=== PATIENT | male | born 1965 | race Caucasian/White ===

== ENCOUNTER 2016-08-07 10:32 | Day surgery (SDC) | payer OTHER ==
[~2016-08-07] VITALS: Ht 180.3 cm; Wt 95.0 kg
[~2016-08-07 10:32] MED LIST: ATRV10T PO; CHOL10008 PO; ESCI20TA38 PO; ESZO3TAB38 PO; GABA-502 PO; IBUP-1827 PO; LEVO88TA4 PO; METH750T3 PO; OMEG-38 PO; PRAZ1CAP2 PO; PROP1DRO5 OCULAR; RANI150C4 PO; Sodium Chloride LOK Flush 10 mL Syringe IV PRN; TRAM50TA2 PO; VENL37.57 PO; fentaNYL-PF 50 mCg/mL 2 mL Inj IVPUSH PRN
[2016-08-07 11:49] VITALS: BP 121/79; PULSE 54; RESP 14; O2SAT 99
[2016-08-07] MEDS: 0.9% Sodium Chloride 1,000 ML IV SCH ×2 (12:36→13:58)
[2016-08-07 13:47] VITALS: BP 129/73; PULSE 66; RESP 16; O2SAT 99
[2016-08-07 13:57] VITALS: BP 121/80; PULSE 62; RESP 16; O2SAT 96
[2016-08-07 14:07] VITALS: BP 121/81; PULSE 63; RESP 16; O2SAT 98
--- NOTE | 2016-08-07 14:28 | ENDO ---
[address] [address] ENDOSCOPY PROCEDURE PATIENT: SAUD RICHMOND : 1965 MR#: [id number] ADMIT: 08/07/2016 JOB ID: [id number] DATE: 08/07/2016 PROCEDURE: Esophagogastroduodenoscopy. INDICATION: Epigastric pain. The patient's ASA classification is 1. Mallampati score is 2. MEDICATIONS: 1. Versed 8 mg. 2. Fentanyl 175 mcg. INSTRUMENT USED: GIF H 180 J. PROCEDURE DETAILS: After informed consent was obtained, the patient was brought into the GI suite, where he was placed on oxygen via nasal cannula and monitored with continuous pulse oximeter, telemetry and blood pressure monitoring. A time-out was performed. Then, he was placed in the left lateral decubitus position and medications were administered for sedation. A bite block was placed. The standard EGD scope was inserted through the bite block and advanced under direct visualization to the second portion of the duodenum without difficulty. FINDINGS: 1. Normal appearing duodenal bulb, first and second portion. Multiple random biopsies were obtained. 2. Normal-appearing pylorus, antrum and gastric body. 3. Retroflexed views in the gastric body revealed a normal-appearing cardia and fundus. 4. Multiple random biopsies were obtained throughout the antrum and body of the stomach. 5. Normal appearing GE junction with a regular Z-line at 40 cm. 6. Normal-appearing esophagus. IMPRESSION: Normal esophagogastroduodenoscopy exam to second portion of duodenum. RECOMMENDATIONS: 1. Await biopsy results. 2. No findings to explain patient's complaint of left upper quadrant/left costal rib pain. 3. Proceed to colonoscopy. COMPLICATIONS: None. ESTIMATED BLOOD LOSS: Less than 5 mL. PROCEDURE PERFORMED: Colonoscopy. INDICATION: Positive FIT test. Please see above for ASA classification, Mallampati score, and medications. INSTRUMENT USED: PCF H 180 J. PREP QUALITY: Was fair. PROCEDURE DETAILS: After completion of the EGD examination, the patient was then turned and then a digital rectal examination with palpation of the prostate was performed, which was unremarkable. The colonoscope was then inserted into the rectum and advanced under direct visualization to the cecum, which was identified by the presence of the ileocecal valve and appendiceal orifice. Once the cecum was reached, colonoscope was withdrawn back into the rectum as the mucosa and lumen were examined. In the rectum, retroflexion was performed. Following retroflexion, remaining air in the rectum was suctioned, and procedure was completed. FINDINGS: 1. In the ascending colon, there is approximately 4-5 mm sessile polyp that was removed with a cold snare. 2. In the transverse colon, there were two polyps that measured approximately 5 and 6 mm each that were removed with a cold snare. 3. In the descending colon, there were two polyps ranging in size from 4-5 mm. Both polyps removed using a cold snare. 4. Retroflexed views in the rectum revealed small internal hemorrhoids. IMPRESSION: 1. One ascending colon polyp. 2. Two transverse polyps. 3. Two descending polyps. RECOMMENDATIONS: Repeat colonoscopy in three years. COMPLICATIONS: None. ESTIMATED BLOOD LOSS: Less than 5 mL.
--- NOTE | 2016-08-09 13:46 | PATH ---
SURGICAL PATHOLOGY Attending Physician:Kristin Montgomery CASE STATUS: Signed Out PATIENT NAME: SAUD RICHMOND PID: [id number] : 1965 DATE COLLECTED:08/07/2016 00:00 SPECIMEN: 1: Duodenum, Biopsy 2: Gastric, Biopsy 3: Colon, Biopsy 4: Colon, Biopsy 5: Colon, Biopsy CLINICAL HISTORY: 1). RANDOM DUODENAL BIOPSY 2). RANDOM GASTRIC BIOPSY 3). TRANSVERSE POLYP X2 4). ASCENDING POLYP X1 5). DESCENDING POLYPS X2 FINAL DIAGNOSIS: 1.RANDOM DUODENAL BIOPSIES: FOCAL AREA OF CHRONIC DUODENITIS. Negative for evidence of celiac disease. Negative for dysplasia and malignancy. 2.RANDOM GASTRIC BIOPSIES: MILD CHRONIC GASTRITIS INVOLVING FUNDIC AND ANTRAL MUCOSA. Negative for evidence of Helicobacter. Negative for intestinal metaplasia. Negative for dysplasia and malignancy. 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 4.ASCENDING COLON POLYP: TUBULAR ADENOMA INVOLVING SINGLE BIOPSY FRAGMENT. 5.DESCENDING COLON POLYPS: TUBULAR ADENOMA INVOLVING TWO BIOPSY FRAGMENTS. ICD10 CODE D12.0 GROSS DESCRIPTION: The specimen is received in five formalin filled containers labeled with the patient's name. 1). The specimen is sublabeled "random duodenal" and consists of 3 portions of tissue which aggregate to 0.3 x 0.2 x 0.2 CM. The specimen is entirely submitted in cassette 1A. 2). The specimen is sublabeled "gastric" and consists of 3 portions of tissue which aggregate to 0.4 x 0.3 x 0.3 CM. The specimen is entirely submitted in cassette 2A. 3). The specimen is sublabeled "transverse polyp" and consists of 3 portions of tissue which aggregate to 0.3 x 0.3 x 0.2 CM. The specimen is entirely submitted in cassette 3A. 4). The specimen is sublabeled "ascending polyp" and consists of 2 portions of tissue which aggregate to 0.6 x 0.3 x 0.2 CM. The specimen is entirely submitted in cassette 4A. 5). The specimen is sublabeled "descending polyps" and consists of 4 portions of tissue which aggregate to 0.5 x 0.5 x 0.4 CM. The specimen is entirely submitted in cassette 5A. 08/08/2016 DAC MICRO DESCRIPTION: See diagnosis. ICD-9 CODES: CPT CODES: 1: 09666 2: 59724 3: 07223 4: 92746 5: 75535 Electronically Signed Out Andrew Mueller MD [facility] [address], [place] [address] Technical component performed at [facility], [address], [place], [address]
== END 2016-08-07 23:59 | disposition home or self-care (01) ==
LOC: END 10:32
PROVIDERS: ATTEND Internal Medicine Gastroenterology
DX: D12.3 Benign neoplasm of transverse colon (principal); D12.4 Benign neoplasm of descending colon; D12.2 Benign neoplasm of ascending colon; R10.13 Epigastric pain
CPT/HCPCS: 43239; 45385; 99153; G0500; J7030